=== PATIENT | female | born 1945 | race Caucasian/White ===

== ENCOUNTER 2018-03-13 20:54 | Emergency (ER) | payer OTHER, MEDICARE, MEDICAID ==
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
[2018-03-14 03:02] VITALS: BP 175/74
== END 2018-03-14 03:02 | disposition home or self-care (01) ==
LOC: ER 20:54
DX: S22.060A Wedge compression fracture of T7-T8 vertebra, initial encounter for closed fracture (principal); R07.81 Pleurodynia; V43.62XA Car passenger injured in collision with other type car in traffic accident, initial encounter; R03.0 Elevated blood-pressure reading, without diagnosis of hypertension; Z79.01 Long term (current) use of anticoagulants; Z95.5 Presence of coronary angioplasty implant and graft
CPT/HCPCS: 71046; 72070; 72128; 99284